=== PATIENT | male | born 1955 | race Caucasian/White ===

== ENCOUNTER 2016-05-30 09:06 | Emergency (ER) | payer MEDICARE, OTHER ==
[~2016-05-30] VITALS: Ht 175.3 cm; Wt 70.0 kg
[2016-05-30 09:17] VITALS: Ht 175.3 cm; Wt 70.0 kg
[2016-05-30] MEDS ORDERED: SOD CHLORIDE 0.9% 500 ML IV STA (09:52)
[2016-05-30] MEDS ORDERED: LORAZEPAM 2 MG INJ IV STA (09:52)
[2016-05-30 10:18] LABS: ADD SCAN DIFF NO
[2016-05-30 10:20] LABS: BASOPHIL # 0.1 10^3/ul (0.0-0.1); BASOPHILS % 1.1 % (0.0-2.0); EOSINOPHILS # 0.1 10^3/ul (0.0-0.5); EOSINOPHILS % 1.3 % (0.0-7.0); HEMATOCRIT 43.2 % (42.0-52.0); HEMOGLOBIN 14.5 g/dl (14.0-18.0); LYMPHOCYTES # 1.3 10^3/ul (0.8-2.9); MEAN CORPUSCULAR HEMOGLOBIN 30.4 pg (29.0-33.0); MEAN CORPUSCULAR HGB CONC 33.6 g/dl (32.0-37.0); MEAN CORPUSCULAR VOLUME 90.6 fl (82.0-101.0); MEAN PLATELET VOLUME 10.3 fl (7.4-10.4); MONOCYTE # 0.6 10^3/ul (0.3-0.9); MONOCYTES % 8.8 % (0.0-11.0); NEUTROPHIL # 4.3 10^3/ul (1.6-7.5); NEUTROPHILS % 67.6 % (39.0-77.0); PLATELET COUNT 199 10^3/UL (140-415); RED BLOOD COUNT 4.77 10^6/ul (4.70-6.10); RED CELL DISTRIBUTION WIDTH 12.9 % (11.5-14.5); WHITE BLOOD COUNT 6.4 10^3/ul (4.8-10.8)
[2016-05-30 10:34] LABS: CHLORIDE 101 mmol/L (97-110); INR 0.95; PROTIME 12.7 Sec (12.2-14.2); SODIUM 140 mmol/L (135-144)
[2016-05-30 10:35] LABS: PARTIAL THROMBOPLASTIN TIME 22.4 Sec (25.0-35.0); POTASSIUM 3.4 mmol/L (3.5-5.1)
[2016-05-30 10:37] LABS: ALANINE AMINOTRANSFERASE 22 IU/L (13-69); ALBUMIN/GLOBULIN RATIO 1.29; ALKALINE PHOSPHATASE 83 IU/L (42-121); ANION GAP 15 (8-16); ASPARTATE AMINO TRANSFERASE 21 IU/L (15-46); BILIRUBIN,INDIRECT 0.5 mg/dl (0-1.1); BILIRUBIN,TOTAL 0.5 mg/dl (0.2-1.3); BLOOD UREA NITROGEN 12 mg/dl (7-20); CALCIUM 8.6 mg/dl (8.4-10.2); CARBON DIOXIDE 27 mmol/L (21-31); CREATININE 0.96 mg/dl (0.61-1.24); GLUCOSE 165 mg/dl (70-220); TOTAL PROTEIN 7.1 g/dl (6.1-8.1)
[2016-05-30 10:38] LABS: ETHANOL < 10.0 mg/dl
[2016-05-30 10:49] LABS: TROPONIN-I 0.025 ng/ml (0.00-0.12)
--- NOTE | 2016-05-30 10:58 | RADRPT ---
PROCEDURE: Chest Radiograph. CLINICAL INDICATION: Altered level of consciousness TECHNIQUE: Single frontal chest radiograph. COMPARISON: None available FINDINGS: Heart size is within normal limits. Atherosclerotic calcifications are present. No infiltrate or effusion is seen. The bones are intact. IMPRESSION: 1. No evidence of acute cardiopulmonary disease. 2. Atherosclerotic vascular disease. RPTAT: KK .Jay Gorman MD, MD Date Time Electronically viewed and signed by .Jay Gorman MD, on 05/30/2016 10:57 .B/
[2016-05-30 11:40] LABS: ADD UMIC NO; URINE BILIRUBIN (Dip) NEGATIVE (NEGATIVE); URINE BLOOD (Dip) NEGATIVE (NEGATIVE); URINE COLOR LT. YELLOW (YELLOW); URINE GLUCOSE (Dip) NEGATIVE (NEGATIVE); URINE KETONES (Dip) NEGATIVE (NEGATIVE); URINE LEUKOCYTE ESTERASE (Dip) NEGATIVE (NEGATIVE); URINE NITRITE (Dip) NEGATIVE (NEGATIVE); URINE TOTAL PROTEIN (Dip) NEGATIVE (NEGATIVE); URINE UROBILINOGEN (Dip) 0.2 E.U./dL (0.1-1.0)
--- NOTE | 2016-05-30 15:26 | ERD ---
ER Documentation Chief Complaint Date/Time DATE: 05/30/16 TIME: 15:21 Chief Complaint BIB RA FOR EVAL OF ANXIETY RECENTLY EVICTED FROM HOME HPI 61-year-old male with an extensive medical history presenting by ambulance after he was evicted from his home today. He states he is very stressed. He is unable to answer questions as he is screaming and crying. He continues to tell me that he is very sick and they should not have evicted him. Is unclear if he has any acute complaints today with regard to his chronic angina. Per EMS he was stable in route and only developed symptoms when he was kicked out. ROS Unable to obtain review of systems given patient's mental status and noncompliance Medications Home Meds Unable to Obtain Active Prescriptions or Reported Meds Allergies Allergies: Coded Allergies: No Known Allergy (Unverified , 05/30/16) PMhx/Soc Hx Psychiatric Problems: Yes Hx Alcohol Use: Yes Hx Substance Use: Yes Hx Tobacco Use: Yes Smoking Status: Current every day smoker FmHx Family History: other (Unable to obtain) Physical Exam Vitals Vital Signs Date Time Temp Pulse Resp B/P Pulse Ox O2 Delivery O2 Flow Rate FiO2 05/30/16 09:17 97.9 90 18 137/89 99 Physical Exam Const: Crying, yelling, unable to focus, unkempt Head: Atraumatic Eyes: Normal Conjunctiva ENT: Dry mucous membranes Neck: Full range of motion. No meningismus. Resp: Clear to auscultation bilaterally Cardio: Regular rate and rhythm, no murmurs Abd: Soft, non tender, non distended. Normal bowel sounds Skin: No petechiae or rashes Back: No midline or flank tenderness Ext: No cyanosis, or edema Neur: Awake and alert and oriented 3, moving all extremities Psych: Agitated and depressed mood and affect, no suicidal or homicidal ideations Result Diagram: 05/30/16 1010 05/30/16 1010 Results 24 hrs Laboratory Tests Test 05/30/16 10:10 05/30/16 10:30 Activated Partial Thromboplast Time 22.4Sec Alanine Aminotransferase (ALT/SGPT) 22IU/L Albumin 4.0g/dl Albumin/Globulin Ratio 1.29 Alkaline Phosphatase 83IU/L Anion Gap 15 Aspartate Amino Transf (AST/SGOT) 21IU/L Basophils # 0.110^3/ul Basophils % 1.1% Blood Urea Nitrogen 12mg/dl Calcium Level 8.6mg/dl Carbon Dioxide Level 27mmol/L Chloride Level 101mmol/L Creatinine 0.96mg/dl Direct Bilirubin 0.00mg/dl Eosinophils # 0.110^3/ul Eosinophils % 1.3% Ethyl Alcohol Level < 10.0mg/dl Globulin 3.10g/dl Glucose Level 165mg/dl Hematocrit 43.2% Hemoglobin 14.5g/dl INR International Normalized Ratio 0.95 Indirect Bilirubin 0.5mg/dl Lymphocytes # 1.310^3/ul Lymphocytes % 21.0% Mean Corpuscular Hemoglobin 30.4pg Mean Corpuscular Hemoglobin Concent 33.6g/dl Mean Corpuscular Volume 90.6fl Mean Platelet Volume 10.3fl Monocytes # 0.610^3/ul Monocytes % 8.8% Neutrophils # 4.310^3/ul Neutrophils % 67.6% Nucleated Red Blood Cells # 0.010^3/ul Nucleated Red Blood Cells % 0.0/100WBC Platelet Count 74743^3/UL Potassium Level 3.4mmol/L Prothrombin Time 12.7Sec Prothrombin Time Ratio 1.0 Red Blood Count 4.7710^6/ul Red Cell Distribution Width 12.9% Sodium Level 140mmol/L Total Bilirubin 0.5mg/dl Total Protein 7.1g/dl Troponin I 0.025ng/ml White Blood Count 6.410^3/ul Urine Bilirubin NEGATIVE Urine Clarity CLEAR Urine Color LT. YELLOW Urine Glucose NEGATIVE% Urine Hemoglobin NEGATIVE Urine Ketones NEGATIVE Urine Leukocyte Esterase NEGATIVE Urine Nitrite NEGATIVE Urine Specific Gate <=1.005 Urine Total Protein NEGATIVE Urine Urobilinogen 0.2 E.U./dL Urine pH 5.5 Current Medications Medications (Trade) Dose Ordered Sig/Jessica Route PRN Reason Start Time Stop Time Status Last Admin Dose Admin Sodium Chloride (NS) 500 ml @ 500 mls/hr Q1H STAT IV 05/30/16 09:52 05/30/16 10:51 DC 05/30/16 10:13 Lorazepam (Ativan) 0.5 mg ONCE STAT IV 05/30/16 09:52 05/30/16 09:55 DC 05/30/16 10:13 Procedures/[facility] EKG: Rate/Rhythm: Sinus tachycardia, poor quality QRS, ST, T-waves: No changes consistent w/ acute ischemia Impression: No evidence of ischemia or arrhythmia Labs did not show any acute abnormalities Chest x-ray without acute abnormalities per radiology Patient is presenting after he was evicted with symptoms of anxiety and emotional distress. He is hemodynamically stable. Labs did not show any abnormalities and I do not believe he is having an acute NE or any other acute emergency. He is asking for help as he is now homeless. I consulted social work and they evaluated the patient. They offered him resources for boarding cares, however the patient states he cannot pay for this. I had to give the patient Ativan given emotional distress. Social work recommended a tele- psychiatry eval and then they will try to place him in the facility. Patient was signed out to Dr. Eden at the end of my shift pending tele-psychiatry eval. Departure Diagnosis: Primary Impression: Anxiety Additional Impression: Generalized pain Condition: Fair PATRICE HYDE MD May 30, 2016 15:26
--- NOTE | 2016-05-30 17:28 | PSY ---
Date/Time of Note Date/Time of Note DATE: 05/30/16 TIME: 17:23 Psychiatric Subjective Eval Consent Pt consented to telemedicine: Yes Subjective Evaluation Patient location: emergency Chief Complaint: BIB RA FOR EVAL OF ANXIETY RECENTLY EVICTED FROM HOME History of present illness 61 yo male with hx anxiety and depression BIB [facility] because he was evicted from [facility] home. Pt adamantly denies any SI, he says he is not depressed: "I am depressed because I don't have a place to go, but I am not really depressed."Pt is somatic, he lists numerous somatic complaints. He deniesi si or hi, denies ah or vh. Says he is overwhelmed and anxious. Past psychiatric history pt says he was in inpt psych many years ago for depression Hospitalization: yes Family History denies Medical history Problems Medical Problems: (1) Anxiety Status: Acute (2) Generalized pain Status: Acute Allergies: Coded Allergies: No Known Allergy (Unverified , 05/30/16) Substance Abuse Substance use: No known substance abuse Social History Marital status: single Level of education: DPA/Conservatorship: No Occupation/Penitentiary: [employer] Psychiatric Objective Eval Physical Examination: Sleep: Adequate Appetite: Adequate Energy: Adequate Interest: Adequate Mental Status Examination: Appearance: Disheveled Eye Contact: Good Psychomotor Activity: Normal Behavior: Cooperative Speech: Clear AFFECT: Anxious Mood: Anxious Though Process: Circumstantial Thought Content: Normal Suicidal: No Homicidal: No On 72 hour hold: No Orientation: x4 Cognition: Alert Insight: Impared Judgement: Impared Laboratory Results Laboratory Tests Test 05/30/16 10:10 05/30/16 10:30 Activated Partial Thromboplast Time 22.4Sec Alanine Aminotransferase (ALT/SGPT) 22IU/L Albumin 4.0g/dl Albumin/Globulin Ratio 1.29 Alkaline Phosphatase 83IU/L Anion Gap 15 Aspartate Amino Transf (AST/SGOT) 21IU/L Basophils # 0.110^3/ul Basophils % 1.1% Blood Urea Nitrogen 12mg/dl Calcium Level 8.6mg/dl Carbon Dioxide Level 27mmol/L Chloride Level 101mmol/L Creatinine 0.96mg/dl Direct Bilirubin 0.00mg/dl Eosinophils # 0.110^3/ul Eosinophils % 1.3% Ethyl Alcohol Level < 10.0mg/dl Globulin 3.10g/dl Glucose Level 165mg/dl Hematocrit 43.2% Hemoglobin 14.5g/dl INR International Normalized Ratio 0.95 Indirect Bilirubin 0.5mg/dl Lymphocytes # 1.310^3/ul Lymphocytes % 21.0% Mean Corpuscular Hemoglobin 30.4pg Mean Corpuscular Hemoglobin Concent 33.6g/dl Mean Corpuscular Volume 90.6fl Mean Platelet Volume 10.3fl Monocytes # 0.610^3/ul Monocytes % 8.8% Neutrophils # 4.310^3/ul Neutrophils % 67.6% Nucleated Red Blood Cells # 0.010^3/ul Nucleated Red Blood Cells % 0.0/100WBC Platelet Count 08030^3/UL Potassium Level 3.4mmol/L Prothrombin Time 12.7Sec Prothrombin Time Ratio 1.0 Red Blood Count 4.7710^6/ul Red Cell Distribution Width 12.9% Sodium Level 140mmol/L Total Bilirubin 0.5mg/dl Total Protein 7.1g/dl Troponin I 0.025ng/ml White Blood Count 6.410^3/ul Urine Bilirubin NEGATIVE Urine Clarity CLEAR Urine Color LT. YELLOW Urine Glucose NEGATIVE% Urine Hemoglobin NEGATIVE Urine Ketones NEGATIVE Urine Leukocyte Esterase NEGATIVE Urine Nitrite NEGATIVE Urine Specific [place] <=1.005 Urine Total Protein NEGATIVE Urine Urobilinogen 0.2 E.U./dL Urine pH 5.5 Assessment and Plan Assessment/Diagnosis [place] I: ADJUSTMENT DISORDER WITH ANXIETY. PANIC D/O BY HX [place] II: DEFERED [place] III: PER RECORD [place] IV: SEVERE [place] V: GAF 45 Recommendation/Plan Medication Management ATIVAN 1MG PO PRN Q 8 HRS ANXIETY WHILE IN ED. REFER TO OUTPT MENTAL HEALTH. Psychotherapy REFER TO OUTPT Pt. Caregiver/Family Education N/A Follow-up/Disposition NO DTS, DTO,GD. PLEASE REFER TO A CORRECTION. 2525 Recommendation: SARINA THOMASON MD May 30, 2016 17:28
[2016-05-31 02:00] VITALS: BP 130/74; PULSE 70; RESP 17; TEMP 97.9
== END 2016-05-31 03:00 | disposition left against medical advice (07) ==
LOC: E/R 09:06
DX: F41.9 Anxiety disorder, unspecified (principal); R52 Pain, unspecified; F17.210 Nicotine dependence, cigarettes, uncomplicated; R40.4 Transient alteration of awareness
CPT/HCPCS: 71010; 80053; 80306; 81003; 84484; 85025; 85610; 85730; 93005; J2060; J7040; 36415; 96374